=== PATIENT | male | born 1935 | race Caucasian/White ===

== ENCOUNTER 2020-08-10 10:17 | Inpatient (IN) | payer MEDICARE ==
[~2020-08-10] VITALS: Ht 180.3 cm; Wt 89.4 kg
[~2020-08-10 10:17] MED LIST: FLOMAX0.4 MG; LISINOPRIL PO; LOPRESSOR50; OMEPRAZOLE40 MG
[2020-08-10 10:19] VITALS: BP 128/78
[2020-08-10 10:53] LABS: ABSOLUTE BASOPHILS 0.1 thou/uL (0.0-0.2); ABSOLUTE EOSINOPHILS 0.1 thou/uL (0.0-0.7); ABSOLUTE LYMPHOCYTES 0.9 thou/uL (0.8-5.3); ABSOLUTE MONOCYTES 0.5 thou/uL (0.0-1.2); ABSOLUTE NEUTROPHILS 7.6 thou/uL (1.6-8.1); BASOPHILS 0.9 %; EOSINOPHILS 0.6 %; HEMATOCRIT 39.7 % (42.0-52.0); LYMPHOCYTES 9.7 %; MCHC 32.7 g/dL (28.0-37.0); MCV 91.7 fL (80.0-100.0); MONOCYTES 5.4 %; MPV 6.9 fl. (7.2-11.1); NUCLEATED RBCS 0 /100WBC; PLATELET COUNT* 315 thou/uL (150-400); POLYS 83.4 %; RBC 4.33 mil/uL (4.50-6.00); RDW-CV 14.4 % (10.5-14.5); WBC 9.1 thou/uL (4.0-11.0)
[2020-08-10 10:58] LABS: CALCIUM 8.5 mg/dL (8.5-10.1); POTASSIUM 3.5 mmol/L (3.5-5.1)
[2020-08-10 11:02] LABS: ALBUMIN 3.2 g/dL (3.4-5.0); APTT 22.4 Seconds (25.0-31.3); PROTIME 10.3 Seconds (9.20-11.50); TOTAL BILIRUBIN 0.7 mg/dL (<0.1-1.0); TOTAL PROTEIN 6.9 g/dL (6.4-8.2)
[2020-08-10 15:00] VITALS: BP 138/75
[2020-08-10 15:30] VITALS: BP 152/76
--- NOTE | 2020-08-10 15:38 | NUR ---
PT ADMITTED WITH LEFT ANKLE FRACTURE. PT ALERT AND ORIENTED. PT ORIENTD TO ROOM. AWAITING ORTHO CONSULT FOR FURTHER CARE. FAMILY AT BEDSIDE.
[2020-08-10 16:05] LABS: URINE BILIRUBIN NEGATIVE (Negative); URINE BLOOD NEGATIVE (Negative); URINE CLARITY CLEAR; URINE COLOR YELLOW; URINE GLUCOSE-RANDOM NEGATIVE (Negative); URINE KETONES NEGATIVE (Negative); URINE LEUKOCYTES-REFLEX NEGATIVE (Negative); URINE NITRITE-REFLEX NEGATIVE (Negative); URINE PROTEIN NEGATIVE (Negative)
--- NOTE | 2020-08-10 17:40 | NUR ---
PT REMAINED ALERT AND ORIENTED. PT RESTING IN BED. PT DENIES ANY PAIN AT THIS TIME. ORTHO CALLED AND PLANNING REDUCATION AT BEDSIDE. PT STILL NPO AT THIS TIME UNLESS AFTER REDUCTION. FALL RISK PRECAUTIONS IN PLACE. HOURLY ROUNDING COMPLETED. Q2 TURNS COMPLETED.
[2020-08-10 20:00] VITALS: BP 118/65
[2020-08-11] VITALS (7 sets, daily range): BP systolic 126–147; BP diastolic 57–77
--- NOTE | 2020-08-11 04:59 | NUR ---
PT A&O X4. ON RA. SPLINT IN PLACE. VOMITED X1 ABOUT @1900 THEN NAUSEA SUBSIDED. PT DENIED PAIN. IVF INFUISING ORDERED. CALL LIGHT WITHIN REACH. WILL CONTINUE TO MONITOR.
--- NOTE | 2020-08-11 16:00 | NUR ---
SPOKE WITH PT.AND . THEY LIVE IN A HOUSE WITH NO STAIRS. HE HAS A WALKER AT HOME BUT DID NOT NEED TO USE IT PRIOR TO SLIP ON ICE. HE WILL NEED A WC. THERAPY EVALED PT. HE WAS AGREEABLE TO HOME HEALTH FOR PT AT DISCHARGE AND CHOSE [facility]. NOTIFIED PT. WOULD LIKE HH AND NEEDS A WC. ORDERS OBTAINED AND FAXED TO [facility] ,ALONG WITH REFERRAL. FAXED ORDER,FACE SHEET AND PROGRESS NOTE OF WHY PT.NEEDS WC TO [facility]. WC WILL NOT BE DELIVERED TO HOSPITAL UNTIL ABOUT 1829 BY [facility]. HAS AN APPT.AT 6. SHE WILL COME BACK TO GET PT.AFTER APPT. WILL BE AFTER 7PM. NOTIFIED VANES[place] [id number] THAT PTS SHOULD BE ALLOWED UP TO 3RD FLOOR SO PT.CAN DISCHARGE. PT.HAVING DRY HEAVES. AGUS CHEN INFORMED.
--- NOTE | 2020-08-11 17:43 | NUR ---
PATIENT CURRENTLY SITTING UP IN [employer]IN[employer]ATING DINNER; HAS REMAINED A&OX4, PLEASANT AND COOPERATIVE WITH CARES THIS SHIFT. PATIENT ACCIDENTALLY DISCONTINUED IV EARLIER IN SHIFT WHILE TRANSFERRING HOWEVER WILL BE DISCHARGING TODAY SO IV WAS NOT RESTARTED. PATIENT WILL DISCHARGE THIS EVENING AFTER PATIENT'S GETS BACK WITH LATE APPOINTMENT. WHEELCHAIR JUST DELIVERED FOR PATIENT TO TAKE HOME. CALL LIGHT AND FREQUENLTY USED ITEMS WITHIN REACH.
--- NOTE | 2020-08-11 18:34 | NUR ---
PATIENT GIVEN DISCHARGE INSTRUCTIONS WELL PRESCRIPTION FOR NORCO FROM DR. LOPEZ. MEDICATIONS REVIEWED, PATIENT DENIES QUESTIONS/CONCERNS. IV WAS REMOVED EARLIER IN SHIFT. WHEELCHAIR WAS DELIVERED TO PATIENT'S ROOM. WILL COME LATER TO PICK PATIENT UP SHE HAD AN EVENING APPOINTMENT TO ATTEND.
--- NOTE | 2020-08-11 20:33 | NUR ---
PATIENT WAS DISCHARGED AT 2024. NURSING STAFF TOOK PATIENT TO ER EXIT VIA WHEELCHAIR WHICH WAS PATIENT'S WHEELCHAIR THAT WAS DELIVERED EARLIER IN THE DAY. HIS TRANSPORTED PATIENT TO HOME.
== END 2020-08-11 20:25 | disposition home health service (06) | DRG 543 ==
LOC: M.ERS 10:17 → M.TBA-ER 12:01 → M.3W 12:01
PROVIDERS: Nurse Practitioner Family; ADMIT Internal Medicine; ATTEND Internal Medicine
PROC: 2W3TX1Z Immobilization of Left Foot using Splint (ICD-10-PCS; principal; 2020-08-10)
PROC: 0QSHXZZ Reposition Left Tibia, External Approach (ICD-10-PCS; principal; 2020-08-10)
DX: M80.072A Age-related osteoporosis with current pathological fracture, left ankle and foot, initial encounter for fracture (principal); E44.0 Moderate protein-calorie malnutrition; D62 Acute posthemorrhagic anemia; I10 Essential (primary) hypertension; K21.9 Gastro-esophageal reflux disease without esophagitis; N40.0 Benign prostatic hyperplasia without lower urinary tract symptoms; Z20.822 Contact with and (suspected) exposure to COVID-19; Z85.46 Personal history of malignant neoplasm of prostate; Z79.899 Other long term (current) drug therapy; Z68.27 Body mass index [BMI] 27.0-27.9, adult

== ENCOUNTER → 2020-08-24 | Day surgery (SDC) | payer MEDICARE ==
[~2020-08-24] MED LIST changes: +LITE COAT ASPI325 MG PO; +NORCO5 PO; +PREDNISONE 5 MG5 M1 PO; +ZYTIGA500 MG PO
--- NOTE | 2020-08-25 14:10 | EKG ---
[place] [address] ELECTROCARDIOGRAM REPORT Name: ARIELA COYLE Room: [facility]#: [id number] Admission: 08/24/20 Attend Phys: Saran Sanchez DO Discharge: Date of : 39 Date of Service: 08/24/20 1236 Report #: [id number] THIS REPORT FOR: //name// [facility] Test Date: 2020-08-24 Test Time: 12:36:41 Pat Name: ARIELA COYLE Department: Room: Gender: Industrial Boilermaker: : 1935 Requested By: Saran Sanchez Order Number: [id number] Audrey MD: Ariela Gleason Measurements Intervals [place]hard Rate: 77 P: -14 LA: 327 QRS: -14 QRSD: 104 T: -1 QT: 408 QTc: 462 Interpretive Statements Sinus rhythm Prolonged LA interval Incomplete RBBB and LAFB No previous ECG available for comparison Electronically Signed On 08-25-2020 14:10:06 PERMIT SPECIALIST by Ariela Gleason [email or web address] <ELECTRONICALLY SIGNED> By: Ariela Gleason MD, [facility] 08/25/20 1410 1236 1236 Ariela Gleason MD, [facility] /EPI
--- NOTE | 2020-08-25 17:38 | OP ---
[address] [address] OPERATIVE REPORT Name: ARIELA COYLE Room: [facility]#: [id number] Admission: 08/24/20 Attend Phys: Saran Sanchez DO Discharge: Date of : 39 Report #: [id number] THIS REPORT FOR: cc: Clark Oglesby Russell J. DO ~ Saran Sanchez DO DATE OF SERVICE: 08/24/2020 PREOPERATIVE DIAGNOSIS: Right trimalleolar ankle fracture. POSTOPERATIVE DIAGNOSIS: Right trimalleolar ankle fracture. PROCEDURES: 1. Open reduction and internal fixation, right trimalleolar ankle fracture (fixation of lateral and medial malleolus). 2. Open reduction and internal fixation of syndesmosis. SURGEON: Saran Sanchez DO PEST CONTROL SERVICE REPRESENTATIVE: Osmani Bobo DO ANESTHESIA: General and blocks. ANTIBIOTICS: Ancef IV. FLUIDS: 900 mL lactated Ringer's. ESTIMATED BLOOD LOSS: 25 mL. COMPLICATIONS: None. SPECIMENS: None. DRAINS: None. CONDITION OF PATIENT: Stable to PACU. IMPLANTS: Wheeler distal fibular locking plate with locking screws in entirety with the exception of the most proximal screw which was cortical, medial malleolus 4.0 cannulated screws x 2 partially-threaded, 1 syndesmotic screw 3.5 cortical. INDICATIONS FOR PROCEDURE: Unstable and displaced trimalleolar ankle fracture. Reviewed with the patient and not only in clinic, but today as well the plan of surgery, risks and complications, they acknowledged, accepted and gave [facility] [address] [place] [address] OPERATIVE REPORT Name: ARIELA COYLE Room: [facility].#: [id number] Admission: 08/24/20 Attend Phys: Saran Sanchez DO Discharge: Date of : 39 Report #: [id number] consent to proceed. DESCRIPTION OF PROCEDURE: I marked the left lower extremity in the presence of operative team members. Everyone agreed correct. He was taken back to the operative suite, placed on the table supine, well-padded and secured. General anesthetic administered. A well-padded tourniquet was placed proximally on the left lower extremity, well padded and secured. The left lower extremity was then sterilely prepped and draped in standard fashion. Timeout was performed indicating correct patient, procedure, site, antibiotics and implants were present and sterile. All team members agreed, went up with tourniquet at 250 mmHg. Marked out incisions. Began laterally over the fibula, scalpel through skin, full thickness flaps, identifying and protecting superficial peroneal nerve throughout the case. Fracture site identified, cleaned out, reduced anatomically. C-arm confirmed appropriate reduction with pentecostal of the length, alignment and rotation of the fibula while holding the reduction and placed with clamps. We then placed our plate, confirmed appropriate position of the plate, drilled, measured and placed cortical screws proximally; however, those cortical screws had poor purchase. We therefore exchanged them for locking screws, making sure the plate was up against bone. Distally, the screws were locking as well and unicortical in nature. Proximally, we continued the locking with the exception of the most proximal screw, which was cortical, had fair purchase. Medially, we opened up, scalpel through skin, full thickness flaps created down to and identifying and protecting the saphenous structures removed within the joint fracture, removed any of that loose debris, anatomically reduced the fracture, held in position with a dental pick, placed guidewires for 4.0 cannulated screws. Multiplanar imaging showed appropriate position of those wires. We then drilled the near cortex and placed two 4.0 partially threaded cannulated screws, well seated with appropriate purchase and held the reduction nicely, removed the wires, brought in C-arm, confirmed that there was some instability at the syndesmosis by intraoperative stress testing. We then placed a transcortical screw. This will also help with some purchase due to his bone quality as well. Final C-arm images showed excellent placement of hardware and pentecostal of joint lines. Saved images and dismissed C-arm let down tourniquet, total time was 42 minutes. Maintained hemostasis, irrigated thoroughly with normal saline. Laterally, we closed deep with 0 Vicryl, subcutaneous with 2-0 Monocryl and skin with 3-0 nylon. Medially, subcutaneous with 2-0 Monocryl and skin with 3-0 nylon. Debriefing performed confirming procedure, blood loss and all counts were correct and final. All team members agreed, placed into a very well-padded and molded sterile splint with the ankle in neutral position. He was extubated and taken to PACU in stable. POSTOPERATIVE COURSE AND EVALUATION: I spoke with his . Addressed questions she had to satisfaction and also reviewed the postoperative plan and orders with her. She denied questions. He was resting in PACU with stable [address] [address] OPERATIVE REPORT Name: ARIELA COYLE Room: [facility]#: [id number] Admission: 08/24/20 Attend Phys: Saran Sanchez DO Discharge: Date of : 39 Report #: [id number] vital signs, pain controlled, neurovascularly intact. Compartments soft and compressible. No pain out of proportion to passive injury. No signs of DVT. Anesthesia performed a block. He will be nonweightbearing, maintained the splint clean, dry and intact. DVT prophylaxis will be both pharmacological with aspirin full strength twice a day with food as directed and mechanical prophylaxis measures were discussed as well. They should continue until instructed, otherwise. I also educated them on concerning signs or symptoms of DVT or PE until proceed to the emergency room if not even calling 911. Pain medication to be taken as directed. Follow up in 2 weeks, sooner if need be. Encouraged them to call anytime with questions or concerns. COVID protocol followed at all times. <ELECTRONICALLY SIGNED> By: Saran Sanchez DO 08/25/20 1738 1539 1744Saran Sanchez DO /nt
== END | disposition home or self-care (01) ==
LOC: M.SUR 09:38
PROVIDERS: ATTEND Orthopaedic Surgery
DX: S82.852A Displaced trimalleolar fracture of left lower leg, initial encounter for closed fracture (principal); M25.572 Pain in left ankle and joints of left foot; I10 Essential (primary) hypertension; Z98.890 Other specified postprocedural states; Z79.899 Other long term (current) drug therapy; Z88.8 Allergy status to other drugs, medicaments and biological substances; X58.XXXA Exposure to other specified factors, initial encounter; Y93.89 Activity, other specified; Y92.89 Other specified places as the place of occurrence of the external cause; Y99.8 Other external cause status; Z85.46 Personal history of malignant neoplasm of prostate